=== PATIENT | female | born 1945 | race Caucasian/White ===

== ENCOUNTER 2019-04-09 10:16 | Inpatient (IN) | payer MEDICARE, BC ==
[~2019-04-09] VITALS: Ht 160 cm; Wt 100.2 kg
[~2019-04-09 10:16] MED LIST: ATORVASTATIN CA10 MG PO; CARBIDOPA-LEVO1 EACH PO; JANUVIA100 MG PO; METFORMIN HCL500 MG PO
[2019-04-09] MEDS ORDERED: IPRATROPIUM BROMIDE 0.02% 2.5 ML NEB NEB STA (10:54)
[2019-04-09] MEDS ORDERED: ALBUTEROL SULF 0.083% NEB SOLN 3 ML NEB NEB STA (10:54)
[2019-04-09] MEDS ORDERED: ONDANSETRON HCL INJ 2MG/ML 2ML 2 MG/ML VIAL IV STA (10:54)
--- NOTE | 2019-04-09 10:59 | NUR ---
GIVEN CUP FOR UA. STATES UNABLE TO VOID AT THIS TIME. PT IS AWARE OF NEED FOR UA.
[2019-04-09 11:07] LABS: BASOPHILS % 0.7 % (0.0-1.0); EOSINOPHILS # (AUTO) 0.1 (0.0-0.4); EOSINOPHILS % 2.2 % (0.0-6.0); HEMATOCRIT 38.6 % (34.2-44.1); HEMOGLOBIN 12.6 g/dL (12.0-16.0); LYMPHOCYTES # (AUTO) 0.4 (1.0-3.2); LYMPHOCYTES % 16.4 % (18.0-39.1); MEAN CORPUSCULAR HEMOGLOBIN 28.9 pg (28-32); MEAN CORPUSCULAR HGB CONC 32.6 g/dL (31-35); MEAN CORPUSCULAR VOLUME 88.5 fL (81-99); MONOCYTES # (AUTO) 0.2 (0.2-0.8); MONOCYTES % 5.6 % (4.4-11.3); NEUTROPHILS % 74.4 % (38.7-80.0); PLATELET COUNT 118 x10e3/uL (140-360); RED BLOOD COUNT 4.36 x10e6/uL (3.6-5.1)
[2019-04-09 11:20] LABS: INR 2.25; PROTHROMBIN TIME 26.5 seconds (11.9-14.5)
[2019-04-09 11:21] LABS: PARTIAL THROMBOPLASTIN TIME 59.9 seconds (23.8-35.5)
[2019-04-09 11:29] LABS: ALANINE AMINOTRANSFERASE 9 IU/L (0-55); ALBUMIN 3.7 g/dL (3.5-5.0); ALBUMIN/GLOBULIN RATIO 1.4 (0.8-2.0); ALKALINE PHOSPHATASE 71 IU/L (40-150); ANION GAP 13.1 mmol/L (8-16); BLOOD UREA NITROGEN 11 mg/dL (7-26); BUN/CREATININE RATIO 13 (6-25); CALCIUM 9.5 mg/dL (8.4-10.2); CARBON DIOXIDE 23 mmol/L (22-29); CHLORIDE 103 mmol/L (98-107); CREATININE, SERUM 0.82 mg/dL (0.57-1.11); EST GLOMERULAR FILTRATION RATE > 60 ML/MIN (60-); GLUCOSE 179 mg/dL (74-118); POTASSIUM 4.1 mmol/L (3.5-5.1); SODIUM 135 mmol/L (136-145)
[2019-04-09 11:37] LABS: STREPTOCOCCUS GRP A ANTIGEN NEGATIVE (NEGATIVE)
[2019-04-09 11:47] LABS: B-TYPE NATRIURETIC PEPTIDE2 73.6 pg/mL (0-100)
[2019-04-09 11:49] LABS: INFLUENZAE A&B ANTIGEN (RAPID) NEGATIVE (NEGATIVE)
--- NOTE | 2019-04-09 12:08 | Diagnostic Imaging Report ---
Chest, PA and lateral. History: Fever, congestion. Comparison: None available. Fashion: The heart is within normal limits of size. The mediastinal hilar contours are unremarkable. There is a patchy opacity at the left base for which pneumonia should be clinically excluded. The right lung is grossly clear. No pleural effusion or pneumothorax. Signed by: Noe Briones MD on 04/09/2019 12:06 PM
[2019-04-09] MEDS ORDERED: CEFTRIAXONE SOD 1 GM VIAL IV ONE (12:30)
[2019-04-09] MEDS ORDERED: CEFTRIAXONE SOD 1 GM/NS 50 ML 50 ML IV ONE (12:40)
[2019-04-09] MEDS ORDERED: LEVOFLOXACIN 500MG/D5W 100ML 100 ML IV SCH (12:45)
[2019-04-09] MEDS ORDERED: DEXTROSE 50% SYRINGE 50 ML IV PRN (13:15)
[2019-04-09] MEDS ORDERED: SODIUM CHLORIDE 0.9% 1000ML 1,000 ML IV ONE (13:15)
[2019-04-09] MEDS: ALBUTEROL SULF 0.083% NEB SOLN 3 ML NEB NEB SCH ×3 (14:55→23:00)
[2019-04-09] MEDS ORDERED: WARFARIN SODIUM3 MG PO (15:09)
[2019-04-09] MEDS: ACETAMINOPHEN 325 MG TAB PO PRN (15:14)
--- NOTE | 2019-04-09 15:44 | NUR ---
Received patient from ER via stretcher. AAOX4 to time, person, place, place, situation. Respirations even and unlabored. NS 75ml via left AC 20G. Oriented patient to room. Instructed to use call light for assistance. Reminded patient of UA orders. Voiced understanding.
[2019-04-09] MEDS ORDERED: ADVAIR 250-501 EACH INH (15:58)
[2019-04-09 16:00] VITALS: BP 136/63
[2019-04-09 16:13] VITALS: BP 136/63
[2019-04-09] MEDS: INSULIN LISPRO 100 UNIT/1 ML 3ML VIAL SQ SCH ×2 (17:21→21:00)
--- NOTE | 2019-04-09 19:00 | NUR ---
Paged to review home meds. Awaiting call back .
--- NOTE | 2019-04-09 19:15 | NUR ---
Report given to oncoming nurse of patient's status. No s/s of acute distress noted. Side rails upx2, call light within reach.
--- NOTE | 2019-04-09 19:22 | NUR ---
Patient received sitting up in bed. AAO x 4. Patient had no complaints of pain. Respirations even and non-labored. Safety measures in place. Patient instructed to call for assistance when needed. Call light within reach.
[2019-04-09] MEDS: IPRATROPIUM BROMIDE 0.02% 2.5 ML NEB NEB SCH (19:45)
[2019-04-09 20:00] VITALS: BP 113/55
[2019-04-09 20:26] LABS: CREATINE KINASE 36 IU/L (29-168)
[2019-04-09 21:00] VITALS: BP 113/55
[2019-04-09] MEDS ORDERED: SODIUM CHLORIDE 0.9% 1000ML 1,000 ML ONE (21:11)
--- NOTE | 2019-04-09 23:05 | NUR ---
Urine sample sent to lab for analysis.
[2019-04-09 23:22] LABS: BILIRUBIN,URINE NEGATIVE (NEGATIVE); CLARITY,URINE SL CLOUDY (CLEAR); COLOR,URINE YELLOW (YELLOW); KETONES,URINE TRACE (NEGATIVE); LEUKOCYTE ESTERASE ,URINE 1+ (NEGATIVE); NITRITE,URINE NEGATIVE (NEGATIVE); PROTEIN,URINE DIPSTICK NEGATIVE (NEGATIVE); URINE UROBILINOGEN 0.2 mg/dL (0.2 - 1)
[2019-04-09 23:32] LABS: BACTERIA,URINE MANY /HPF; EPITHELIAL CELLS,URINE FEW /LPF; RENAL EPITHELIAL CELLS,URINE FEW; TRANSITIONAL EPI CELLS,URINE MODERATE; WBC,URINE (MAN) 21-50 /HPF (0-5)
[2019-04-10] VITALS (11 sets, daily range): BP systolic 116–157; BP diastolic 60–83
[2019-04-10] MEDS: ALBUTEROL SULF 0.083% NEB SOLN 3 ML NEB NEB SCH ×2 (03:30→07:10)
[2019-04-10] MEDS: IPRATROPIUM BROMIDE 0.02% 2.5 ML NEB NEB SCH ×2 (03:30→07:10)
[2019-04-10] MEDS: ACETAMINOPHEN 325 MG TAB PO PRN ×2 (03:49→10:54)
[2019-04-10 05:32] LABS: BASOPHILS % 0.6 % (0.0-1.0); EOSINOPHILS % 1.7 % (0.0-6.0); HEMATOCRIT 34.1 % (34.2-44.1); HEMOGLOBIN 11.2 g/dL (12.0-16.0); LYMPHOCYTES # (AUTO) 0.7 (1.0-3.2); MEAN CORPUSCULAR HEMOGLOBIN 28.9 pg (28-32); MEAN CORPUSCULAR HGB CONC 32.8 g/dL (31-35); MEAN CORPUSCULAR VOLUME 87.9 fL (81-99); MONOCYTES # (AUTO) 0.2 (0.2-0.8); MONOCYTES % 12.2 % (4.4-11.3); NEUTROPHILS # (AUTO) 0.8 (2.1-6.9); NEUTROPHILS % 45.9 % (38.7-80.0); PLATELET COUNT 94 x10e3/uL (140-360); RED BLOOD COUNT 3.88 x10e6/uL (3.6-5.1)
[2019-04-10 05:47] LABS: CREATINE KINASE 48 IU/L (29-168)
[2019-04-10 06:11] LABS: ALANINE AMINOTRANSFERASE 10 IU/L (0-55); ALBUMIN 3.1 g/dL (3.5-5.0); ALBUMIN/GLOBULIN RATIO 1.3 (0.8-2.0); ALKALINE PHOSPHATASE 58 IU/L (40-150); ANION GAP 11.4 mmol/L (8-16); BLOOD UREA NITROGEN 11 mg/dL (7-26); BUN/CREATININE RATIO 13 (6-25); CALCIUM 8.7 mg/dL (8.4-10.2); CARBON DIOXIDE 23 mmol/L (22-29); CHLORIDE 106 mmol/L (98-107); CREATININE, SERUM 0.82 mg/dL (0.57-1.11); EST GLOMERULAR FILTRATION RATE > 60 ML/MIN (60-); GLUCOSE 138 mg/dL (74-118); POTASSIUM 3.4 mmol/L (3.5-5.1); SODIUM 137 mmol/L (136-145)
--- NOTE | 2019-04-10 06:16 | NUR ---
Dr. Gordon notified of critical WBC level of 1.72. No new order received.
--- NOTE | 2019-04-10 06:50 | NUR ---
Walking rounds done. Patient resting comfortably. BSSR given to oncoming nurse.
[2019-04-10 07:19] LABS: BAND NEUTROPHILS % (MANUAL) 2 %; EOSINOPHILS % (MANUAL) 2 % (0-7); LYMPHOCYTES % (MANUAL) 48 % (19-48); MONOCYTES % (MANUAL) 9 % (3.4-9.0); NEUTROPHILS % (MANUAL) 38 % (40-74); PLATELET ESTIMATE SLIGHTLY DECREASED; PLATELET MORPHOLOGY COMMENT NORMAL; RBC MORPHOLOGY COMMENT NORMAL
[2019-04-10] MEDS: INSULIN LISPRO 100 UNIT/1 ML 3ML VIAL SQ SCH ×4 (07:30→21:00)
[2019-04-10] MEDS ORDERED: VANCOMYCIN 1GM/NS 250 ML 250 ML IV SCH (09:15)
[2019-04-10] MEDS ORDERED: ALBUTEROL/IPRATROPIUM 3 ML NEB NEB PRN (09:15)
[2019-04-10] MEDS ORDERED: SALMETEROL/FLUTICASONE 250/50 INH PRN (09:15)
[2019-04-10] MEDS ORDERED: POTASSIUM CHLORIDE 10MEQ EA PO NR (09:30)
[2019-04-10] MEDS ORDERED: VANCOMYCIN 1GM/NS 250 ML 250 ML IV ONE ×2 (10:15→12:00)
[2019-04-10] MEDS: CEFTRIAXONE SOD 1 GM/NS 50 ML 50 ML IV SCH ×2 (10:53→21:51)
[2019-04-10] MEDS: SITAGLIPTIN 100 MG TAB PO SCH (10:53)
--- NOTE | 2019-04-10 11:22 | Diagnostic Imaging Report ---
EXAM: CT Chest WITHOUT contrast INDICATION: ^sob ^[id number] ^[id number] COMPARISON: None TECHNIQUE: Chest was scanned utilizing a multidetector helical scanner from the lung apex through the level of the adrenal glands without administration of IV contrast. Absence of intravenous contrast decreases sensitivity for detection of lymphadenopathy and vascular pathology. Coronal and sagittal reformations were obtained. Routine protocol was performed. IV CONTRAST: None COMPLICATIONS: None RADIATION DOSE: Total DLP: 488.35 mGy*cm Estimated effective dose: (DLP x 0.014 x size factor) mSv CTDIvol has been reviewed. It is below the limits set by the Radiation Protocol Committee (RPC). FINDINGS: LINES/ TUBES: None. LUNGS AND AIRWAYS: Patchy consolidations are seen in both lungs which could be due to multifocal pneumonia Airways are normal. PLEURA: The pleural spaces are clear. HEART AND MEDIASTINUM: The thyroid gland is normal. No hilar or axillary lymphadenopathy. Prominent mediastinal lymphadenopathy likely reactive. The heart is normal in size.. There is no pericardial effusion. UPPER ABDOMEN: Splenomegaly. BONES: There are degenerative changes in the thoracic spine. SOFT TISSUES: Unremarkable. IMPRESSION: Patchy consolidations are seen in both lungs likely due to multifocal pneumonia Signed by: Shayne Andrew MD on 04/10/2019 11:19 AM
[2019-04-10] MEDS: AZITHROMYCIN 500MG/NS 250 ML 250 ML IV SCH (12:37)
[2019-04-10 12:49] LABS: CREATINE KINASE 49 IU/L (29-168)
[2019-04-10] MEDS: CARBIDOPA/LEVODOPA 10/100 TAB PO SCH ×3 (13:30→21:51)
[2019-04-10] MEDS ORDERED: CEPACOL SORE THROAT LOZENGES PO PRN (13:45)
[2019-04-10] MEDS: ALBUTEROL/IPRATROPIUM 3 ML NEB NEB SCH ×2 (14:00→18:48)
--- NOTE | 2019-04-10 20:11 | NUR ---
VITALS RETAKEN FOR VERIFICATION BY THIS NURSE, PATIENT SITTING IN BED HIGH FOWLERS POSITION, TALKING ON PHONE SMILING, REMAIN ON CONTACT ISOLATION FOR LEUKOPENIA
[2019-04-10] MEDS: ATORVASTATIN 10 MG TAB PO SCH (21:51)
[2019-04-11] VITALS (11 sets, daily range): BP systolic 119–158; BP diastolic 59–90
[2019-04-11] MEDS: ALBUTEROL/IPRATROPIUM 3 ML NEB NEB SCH ×5 (00:05→19:00)
--- NOTE | 2019-04-11 04:06 | NUR ---
PATIENT BED EXCHANGED PER HER REQUEST, ALL BUTTONS FUNCTION, REMAIN ON ISOLATION, HELPED BACK INTO BED, CALL LIGHT WITHIN REACH
[2019-04-11 05:20] LABS: EOSINOPHILS # (AUTO) 0.3 (0.0-0.4); EOSINOPHILS % 11.1 % (0.0-6.0); HEMATOCRIT 34.1 % (34.2-44.1); LYMPHOCYTES # (AUTO) 0.7 (1.0-3.2); LYMPHOCYTES % 31.6 % (18.0-39.1); MEAN CORPUSCULAR HEMOGLOBIN 28.9 pg (28-32); MEAN CORPUSCULAR HGB CONC 32.3 g/dL (31-35); MEAN CORPUSCULAR VOLUME 89.7 fL (81-99); MONOCYTES # (AUTO) 0.3 (0.2-0.8); NEUTROPHILS % 44.4 % (38.7-80.0); PLATELET COUNT 116 x10e3/uL (140-360); RED CELL DISTRIBUTION WIDTH 14.2 % (11.7-14.4)
--- NOTE | 2019-04-11 05:25 | NUR ---
MILDLY ELEVATED TEMP REPORTED 99.1, HR 97, BLOOD PRESSURE 119/90, PATIENT ASYMPTOMATIC, NO ALTERED MENTAL STATUS, CONTINUES TO C/O WEAKNESS, REMAIN ON ISOLATION FOR NEUTROPENIC PRECAUTIONS
[2019-04-11 05:44] LABS: ANION GAP 10.7 mmol/L (8-16); BLOOD UREA NITROGEN 10 mg/dL (7-26); BUN/CREATININE RATIO 13 (6-25); CALCIUM 8.8 mg/dL (8.4-10.2); CARBON DIOXIDE 23 mmol/L (22-29); CHLORIDE 112 mmol/L (98-107); CREATININE, SERUM 0.75 mg/dL (0.57-1.11); EST GLOMERULAR FILTRATION RATE > 60 ML/MIN (60-); GLUCOSE 139 mg/dL (74-118); POTASSIUM 3.7 mmol/L (3.5-5.1); SODIUM 142 mmol/L (136-145)
--- NOTE | 2019-04-11 07:02 | NUR ---
BSSR GIVEN TO ONCOMING SHIFT JANKI VILLA, PATIENT STABLE, VSS, AFEBRILE, IN BED, CALL LIGHT WITHIN REACH, VERBAZADELA CONTINUE PLAN OF CARE, BED IN LOWEST POSITION, LABS PENDING THIS AM
[2019-04-11] MEDS: CARBIDOPA/LEVODOPA 10/100 TAB PO SCH ×4 (08:26→22:29)
[2019-04-11] MEDS: AZITHROMYCIN 500MG/NS 250 ML 250 ML IV SCH (08:26)
[2019-04-11] MEDS: SITAGLIPTIN 100 MG TAB PO SCH (08:26)
[2019-04-11] MEDS ORDERED: WARFARIN SOD 3 MG TAB PO SCH (09:00)
[2019-04-11 09:02] LABS: PLATELET MORPHOLOGY COMMENT FEW LARGE
[2019-04-11] MEDS: CEFTRIAXONE SOD 1 GM/NS 50 ML 50 ML IV SCH ×2 (10:39→22:29)
[2019-04-11] MEDS: INSULIN LISPRO 100 UNIT/1 ML 3ML VIAL SQ SCH ×4 (10:40→22:30)
[2019-04-11] MEDS: WARFARIN SOD 3 MG TAB PO SCH (17:03)
--- NOTE | 2019-04-11 19:09 | NUR ---
report received from JANKI VILLA, PATIENT SEEN LYING IN BED, NO DISTRESS NOTED, NO C/O PAIN OR DISCOMFORT, BED IN LOWEST POSITION, CALL LIGHT WITHIN REACH
[2019-04-11] MEDS: ATORVASTATIN 10 MG TAB PO SCH (22:29)
[2019-04-12] VITALS (14 sets, daily range): BP systolic 104–166; BP diastolic 59–82
[2019-04-12] MEDS: ALBUTEROL/IPRATROPIUM 3 ML NEB NEB SCH ×4 (01:00→19:42)
--- NOTE | 2019-04-12 06:52 | NUR ---
bedside shift report received from mold shifter RN, pt sitting up in bed, appears comfortable, no complaints at this time. no signs of distress.
[2019-04-12] MEDS: INSULIN LISPRO 100 UNIT/1 ML 3ML VIAL SQ SCH ×4 (07:30→21:00)
[2019-04-12] MEDS: AZITHROMYCIN 500MG/NS 250 ML 250 ML IV SCH (09:56)
[2019-04-12] MEDS: CARBIDOPA/LEVODOPA 10/100 TAB PO SCH ×4 (09:56→22:05)
[2019-04-12] MEDS: SITAGLIPTIN 100 MG TAB PO SCH (09:56)
[2019-04-12] MEDS ORDERED: SODIUM CHLORIDE 0.9% 250ML 250 ML ONE (10:06)
[2019-04-12 11:43] LABS: INR 1.27; PROTHROMBIN TIME 16.7 seconds (11.9-14.5)
[2019-04-12] MEDS: CEFTRIAXONE SOD 1 GM/NS 50 ML 50 ML IV SCH ×2 (12:49→22:05)
[2019-04-12] MEDS: WARFARIN SOD 3 MG TAB PO SCH (17:21)
--- NOTE | 2019-04-12 19:25 | NUR ---
Patient received sitting up in bed. AAO x 4. Patient had no complaints of pain. Respirations even and non-labored. Fall precautions implemented. Patient instructed to call for assistance when needed. Call light within reach.
--- NOTE | 2019-04-12 20:09 | NUR ---
Dr. Colvin here to see patient. No new order received.
[2019-04-12] MEDS: ATORVASTATIN 10 MG TAB PO SCH (22:05)
[2019-04-13] VITALS (9 sets, daily range): BP systolic 130–170; BP diastolic 65–99
--- NOTE | 2019-04-13 00:04 | NUR ---
Patient's IV on right arm infiltrated. Old IV removed with tip intact. New IV inserted in Right forearm 22G
[2019-04-13] MEDS: ALBUTEROL/IPRATROPIUM 3 ML NEB NEB SCH ×4 (00:15→19:50)
--- NOTE | 2019-04-13 07:00 | NUR ---
Walking rounds done. Patient resting comfortably. BSSR given to oncoming nurse.
--- NOTE | 2019-04-13 07:01 | NUR ---
received bedside shift report from PM RN, pt sitting up in bed, awake, alert, no signs of distress. will continue to monitor.
[2019-04-13] MEDS: INSULIN LISPRO 100 UNIT/1 ML 3ML VIAL SQ SCH ×4 (08:55→21:00)
[2019-04-13 09:36] LABS: BASOPHILS % 0.5 % (0.0-1.0); EOSINOPHILS # (AUTO) 0.5 (0.0-0.4); EOSINOPHILS % 11.9 % (0.0-6.0); HEMATOCRIT 33.1 % (34.2-44.1); HEMOGLOBIN 10.9 g/dL (12.0-16.0); LYMPHOCYTES # (AUTO) 1.2 (1.0-3.2); LYMPHOCYTES % 28.9 % (18.0-39.1); MEAN CORPUSCULAR HEMOGLOBIN 28.9 pg (28-32); MEAN CORPUSCULAR HGB CONC 32.9 g/dL (31-35); MEAN CORPUSCULAR VOLUME 87.8 fL (81-99); MONOCYTES # (AUTO) 0.2 (0.2-0.8); MONOCYTES % 5.1 % (4.4-11.3); NEUTROPHILS # (AUTO) 2.3 (2.1-6.9); NEUTROPHILS % 52.9 % (38.7-80.0); PLATELET COUNT 156 x10e3/uL (140-360); RED BLOOD COUNT 3.77 x10e6/uL (3.6-5.1); RED CELL DISTRIBUTION WIDTH 13.9 % (11.7-14.4)
[2019-04-13] MEDS: CARBIDOPA/LEVODOPA 10/100 TAB PO SCH ×4 (09:36→21:04)
[2019-04-13] MEDS: AZITHROMYCIN 500MG/NS 250 ML 250 ML IV SCH (09:36)
[2019-04-13] MEDS: SITAGLIPTIN 100 MG TAB PO SCH (09:36)
[2019-04-13 09:48] LABS: INR 1.15; PROTHROMBIN TIME 15.4 seconds (11.9-14.5)
[2019-04-13 09:52] LABS: ANION GAP 11.8 mmol/L (8-16); BLOOD UREA NITROGEN 13 mg/dL (7-26); BUN/CREATININE RATIO 16 (6-25); CALCIUM 8.6 mg/dL (8.4-10.2); CARBON DIOXIDE 26 mmol/L (22-29); CHLORIDE 107 mmol/L (98-107); EST GLOMERULAR FILTRATION RATE > 60 ML/MIN (60-); GLUCOSE 152 mg/dL (74-118); POTASSIUM 3.8 mmol/L (3.5-5.1); SODIUM 141 mmol/L (136-145)
[2019-04-13] MEDS: CEFTRIAXONE SOD 1 GM/NS 50 ML 50 ML IV SCH ×2 (13:30→21:29)
--- NOTE | 2019-04-13 14:02 | Diagnostic Imaging Report ---
Exam: Chest radiograph Clinical History: Infection Comparison: April 09, 2019 Findings: Residual airway opacity is noted near the left lung base which may represent resolving pneumonitis. There is no evidence of pleural effusion or pneumothorax. The cardiac size is within normal limits. The regional osseous structures are unremarkable. Signed by: Dr. Vignesh Fleming MD on 04/13/2019 1:59 PM
[2019-04-13] MEDS: WARFARIN SOD 3 MG TAB PO SCH (17:13)
--- NOTE | 2019-04-13 19:22 | NUR ---
Patient received sitting up in bed. AAO x 4. No acute distress noted. Patient instructed to call for assistance when needed. Call light within reach.
[2019-04-13] MEDS: ATORVASTATIN 10 MG TAB PO SCH (21:04)
[2019-04-14] VITALS (7 sets, daily range): BP systolic 130–147; BP diastolic 62–79
[2019-04-14] MEDS: ALBUTEROL/IPRATROPIUM 3 ML NEB NEB SCH ×4 (01:35→20:10)
[2019-04-14 05:12] LABS: BASOPHILS % 0.5 % (0.0-1.0); EOSINOPHILS # (AUTO) 0.5 (0.0-0.4); HEMATOCRIT 34.5 % (34.2-44.1); HEMOGLOBIN 10.6 g/dL (12.0-16.0); LYMPHOCYTES # (AUTO) 1.1 (1.0-3.2); LYMPHOCYTES % 27.3 % (18.0-39.1); MEAN CORPUSCULAR HEMOGLOBIN 27.5 pg (28-32); MEAN CORPUSCULAR HGB CONC 30.7 g/dL (31-35); MEAN CORPUSCULAR VOLUME 89.4 fL (81-99); MONOCYTES # (AUTO) 0.2 (0.2-0.8); MONOCYTES % 5.5 % (4.4-11.3); NEUTROPHILS # (AUTO) 2.2 (2.1-6.9); NEUTROPHILS % 53.7 % (38.7-80.0); PLATELET COUNT 146 x10e3/uL (140-360); RED BLOOD COUNT 3.86 x10e6/uL (3.6-5.1); RED CELL DISTRIBUTION WIDTH 13.7 % (11.7-14.4)
--- NOTE | 2019-04-14 06:48 | NUR ---
Bed-side shift report given to oncoming nurse.
--- NOTE | 2019-04-14 07:00 | NUR ---
RECEIVED BEDSIDE SHIFT REPORT FROM HIGH PRESSURE BOILER OPERATOR RN. PT DENIES NEEDS AT THIS TIME.
[2019-04-14] MEDS: AZITHROMYCIN 500MG/NS 250 ML 250 ML IV SCH (08:23)
[2019-04-14] MEDS: SITAGLIPTIN 100 MG TAB PO SCH (08:23)
[2019-04-14] MEDS: CARBIDOPA/LEVODOPA 10/100 TAB PO SCH ×4 (08:23→20:38)
[2019-04-14] MEDS: INSULIN LISPRO 100 UNIT/1 ML 3ML VIAL SQ SCH ×4 (08:25→20:26)
--- NOTE | 2019-04-14 08:33 | NUR ---
BPCI LETTER GIVEN
--- NOTE | 2019-04-14 08:33 | NUR ---
EDUCATED ABOUT IMM, SIGNED, FILED IN CHART, WITH COPY LEFT WITH FAMILY AT BEDSIDE.
[2019-04-14] MEDS: CEFTRIAXONE SOD 1 GM/NS 50 ML 50 ML IV SCH ×2 (10:17→21:43)
[2019-04-14 17:37] LABS: INR 1.1; PROTHROMBIN TIME 14.9 seconds (11.9-14.5)
[2019-04-14] MEDS: WARFARIN SOD 3 MG TAB PO SCH (18:28)
[2019-04-14] MEDS: ATORVASTATIN 10 MG TAB PO SCH (20:38)
[2019-04-15] VITALS (9 sets, daily range): BP systolic 137–144; BP diastolic 62–73
[2019-04-15] MEDS: ALBUTEROL/IPRATROPIUM 3 ML NEB NEB SCH ×4 (02:45→19:20)
[2019-04-15 06:10] LABS: INR 1.16; PROTHROMBIN TIME 15.6 seconds (11.9-14.5)
--- NOTE | 2019-04-15 07:00 | NUR ---
RECEIVED BEDSIDE SHIFT REPORT FROM BRAKE OPERATOR RN. PT DENIES NEEDS AT THIS TIME.
[2019-04-15] MEDS: AZITHROMYCIN 250 MG TAB PO SCH (08:05)
[2019-04-15] MEDS: SITAGLIPTIN 100 MG TAB PO SCH (08:05)
[2019-04-15] MEDS: CARBIDOPA/LEVODOPA 10/100 TAB PO SCH ×4 (08:05→20:31)
[2019-04-15] MEDS: INSULIN LISPRO 100 UNIT/1 ML 3ML VIAL SQ SCH ×4 (08:06→20:31)
[2019-04-15] MEDS: WARFARIN SOD 3 MG TAB PO SCH (17:05)
[2019-04-15] MEDS: ATORVASTATIN 10 MG TAB PO SCH (20:31)
[2019-04-16] VITALS (8 sets, daily range): BP systolic 131–152; BP diastolic 60–68
[2019-04-16] MEDS: ALBUTEROL/IPRATROPIUM 3 ML NEB NEB SCH ×4 (01:02→19:35)
[2019-04-16 05:11] LABS: BASOPHILS % 0.6 % (0.0-1.0); EOSINOPHILS # (AUTO) 0.5 (0.0-0.4); EOSINOPHILS % 9.2 % (0.0-6.0); HEMATOCRIT 34.2 % (34.2-44.1); HEMOGLOBIN 10.9 g/dL (12.0-16.0); LYMPHOCYTES # (AUTO) 1.2 (1.0-3.2); MEAN CORPUSCULAR HEMOGLOBIN 28.8 pg (28-32); MEAN CORPUSCULAR HGB CONC 31.9 g/dL (31-35); MEAN CORPUSCULAR VOLUME 90.2 fL (81-99); MONOCYTES # (AUTO) 0.3 (0.2-0.8); MONOCYTES % 5.8 % (4.4-11.3); NEUTROPHILS % 60.2 % (38.7-80.0); PLATELET COUNT 192 x10e3/uL (140-360); RED BLOOD COUNT 3.79 x10e6/uL (3.6-5.1); RED CELL DISTRIBUTION WIDTH 13.9 % (11.7-14.4)
[2019-04-16 05:23] LABS: INR 1.24; PROTHROMBIN TIME 16.4 seconds (11.9-14.5)
--- NOTE | 2019-04-16 07:00 | NUR ---
BEDSIDE SHIFT REPORT RECEIVED FROM THE MACHINE MOLDER SQUEEZE RN. EDUCATED PT ABOUT FALL PRECAUTIONS.PT VERBALIZED UNDERSTANDING CALL LIGHT WITH IN EASY REACH. INSTRUCTED PT TO USE CALL LIGHT FOR ALL THE NEEDS. BED IS LOW AND LOCKED. SIDE RAILS X2. BED ALARM IS ON. PT DENIES NEEDS AT THIS TIME.
[2019-04-16] MEDS: AZITHROMYCIN 250 MG TAB PO SCH (08:14)
[2019-04-16] MEDS: CARBIDOPA/LEVODOPA 10/100 TAB PO SCH ×4 (08:14→21:46)
[2019-04-16] MEDS: SITAGLIPTIN 100 MG TAB PO SCH (08:14)
[2019-04-16] MEDS: INSULIN LISPRO 100 UNIT/1 ML 3ML VIAL SQ SCH ×4 (08:30→21:46)
[2019-04-16] MEDS ORDERED: AMOXICILLIN/CLAVULANATE K 875 MG TAB PO SCH (11:00)
--- NOTE | 2019-04-16 13:00 | NUR ---
DR. EUGENE AT BEDSIDE. NO MORE NEUTROPENIC PRECAUTIONS NEEDED PER THE
--- NOTE | 2019-04-16 15:06 | NUR ---
Nutrition Screen Note RD Recommendation for Physician: -Continue current diet as ordered Plan of Care: RD following, monitoring for tolerance and adequacy Nutrition reason for involvement: Length of stay Primary Diagnose(s): leucopenia, pneumonia PMH: diabetes, Parkinson, HTN, dyslipidemia (from H/P on 12/04/18 no H/P in chart yet for this admission) Ht: 63 in Wt: 221 lb BMI: 39.2 kg/m2 IBW:[address] Assessment: (04/16) Chart reviewed. Labs and meds reviewed. Pt was admitted with leucopenia and pneumonia. Pt reports she has been eating all of her meals. No weight loss reported. No N/V or chewing/swallowing issues. Will continue to monitor. Current Diet: 1800 kcal ADA diet Malnutrition Evaluation (04/16) The patient does not meet criteria for a specified degree of malnutrition at this time. Will re-evaluate at follow-up as appropriate. Diet Education Needs Assessment: Pt was not interested in diet education materials at time of visit Nutrition Care Level: low Signed: Trinity Crawford, RD, LD
--- NOTE | 2019-04-16 17:06 | Diagnostic Imaging Report ---
EXAM: CHEST SINGLE (PORTABLE) DATE: 04/16/2019 3:18 PM INDICATION: ^Pneumonia ^[id number] ^1615 ^Y COMPARISON: Chest x-ray, 04/13/2019 FINDINGS: Lines and tubes: None Heart size normal. Unchanged mild focal opacity at the left lung base. No pleural effusion or pneumothorax. Upper abdomen unremarkable. No acute bony abnormality. IMPRESSION: Minimal patchy opacity at the left lung base, stable from last exam. This may represent atelectasis or infection. Signed by: Dr. Nils Hussein M.D. on 04/16/2019 5:03 PM
[2019-04-16] MEDS: WARFARIN SOD 3 MG TAB PO SCH (17:28)
--- NOTE | 2019-04-16 18:00 | NUR ---
PT C/O NAUSEA, DIARRHEA AND ABDOMINAL DISCOMFORT. PAGED DR. RAMSEY AND LEFT MESSAGE REGARDING THE SAME. WAITING FOR THE RESPONSE FROM THE
--- NOTE | 2019-04-16 19:00 | NUR ---
BEDSIDE SHIFT REPORT GIVEN TO THE BILINGUAL SCHOOL PSYCHOLOGIST RN. PT DENIED FURTHER NEEDS.
[2019-04-16] MEDS ORDERED: ONDANSETRON HCL INJ 2MG/ML 2ML 2 MG/ML VIAL IV PRN (19:45)
[2019-04-16] MEDS: ATORVASTATIN 10 MG TAB PO SCH (21:46)
[2019-04-17] VITALS (8 sets, daily range): BP systolic 98–129; BP diastolic 47–59
[2019-04-17] MEDS: ALBUTEROL/IPRATROPIUM 3 ML NEB NEB SCH ×4 (00:15→18:55)
--- NOTE | 2019-04-17 07:00 | NUR ---
BEDSIDE SHIFT REPORT RECEIVED FROM THE PRODUCT BLENDING SUPERVISOR RN. EDUCATED PT ABOUT FALL PRECAUTIONS.PT VERBALIZED UNDERSTANDING CALL LIGHT WITH IN EASY REACH. INSTRUCTED PT TO USE CALL LIGHT FOR ALL THE NEEDS. BED IS LOW AND LOCKED. SIDE RAILS X2. BED ALARM IS ON. PT DENIES NEEDS AT THIS TIME.
[2019-04-17] MEDS: INSULIN LISPRO 100 UNIT/1 ML 3ML VIAL SQ SCH ×4 (08:30→21:15)
[2019-04-17] MEDS: SITAGLIPTIN 100 MG TAB PO SCH (08:33)
[2019-04-17] MEDS: CARBIDOPA/LEVODOPA 10/100 TAB PO SCH ×4 (08:33→21:26)
[2019-04-17 09:06] LABS: INR 1.27; PROTHROMBIN TIME 16.7 seconds (11.9-14.5)
[2019-04-17] MEDS ORDERED: SODIUM CHLORIDE 0.9% 250ML 250 ML ONE (09:43)
[2019-04-17] MEDS: CEFTRIAXONE SOD 1 GM/NS 50 ML 50 ML IV SCH (09:49)
--- NOTE | 2019-04-17 16:00 | NUR ---
PAGED DR. EUGENE PER DR. RAMSEY, REGARDING PT D/C PLAN. LEFT MESSAGE. WAITING FOR THE RESPONSE FROM THE
[2019-04-17] MEDS: WARFARIN SOD 3 MG TAB PO SCH (17:53)
--- NOTE | 2019-04-17 19:00 | NUR ---
BEDSIDE SHIFT REPORT GIVEN TO THE BANKMAN RN. PT DENIED FURTHER NEEDS.
[2019-04-17] MEDS: ATORVASTATIN 10 MG TAB PO SCH (21:26)
[2019-04-18 00:06] VITALS: BP 132/59
[2019-04-18] MEDS: ALBUTEROL/IPRATROPIUM 3 ML NEB NEB SCH ×3 (00:50→13:08)
[2019-04-18 04:00] VITALS: BP 134/63
--- NOTE | 2019-04-18 07:00 | NUR ---
BEDSIDE SHIFT REPORT RECEIVED FROM THE SUPERVISOR ADVICE RN. EDUCATED PT ABOUT FALL PRECAUTIONS.PT VERBALIZED UNDERSTANDING CALL LIGHT WITH IN EASY REACH. INSTRUCTED PT TO USE CALL LIGHT FOR ALL THE NEEDS. BED IS LOW AND LOCKED. SIDE RAILS X2. PT DENIES NEEDS AT THIS TIME.
[2019-04-18 07:36] VITALS: BP 121/57
[2019-04-18 07:58] VITALS: BP 121/57
[2019-04-18] MEDS: INSULIN LISPRO 100 UNIT/1 ML 3ML VIAL SQ SCH ×2 (08:30→11:35)
[2019-04-18] MEDS: SITAGLIPTIN 100 MG TAB PO SCH (08:46)
[2019-04-18] MEDS: CEFTRIAXONE SOD 1 GM/NS 50 ML 50 ML IV SCH (08:46)
[2019-04-18] MEDS: CARBIDOPA/LEVODOPA 10/100 TAB PO SCH ×2 (08:46→12:27)
[2019-04-18 10:35] LABS: INR 1.22; PROTHROMBIN TIME 16.2 seconds (11.9-14.5)
[2019-04-18 11:15] VITALS: BP 127/49
--- NOTE | 2019-04-18 11:16 | NUR ---
DR. RAMSEY AT BEDSIDE. INFORMED PT INR VALUE 1.22 TODAY.
--- NOTE | 2019-04-18 12:14 | Discharge Summary ---
UPSETTER SETTER UP: Dr. Dee Colvin. FINAL DIAGNOSES: 1. Sepsis on admission. No shock. 2. Multilobar pneumonia. 3. Leukopenia. 4. Thrombocytopenia. SUMMARY: This is a 73-year-old female, who came into the hospital with sepsis basically because of multilobar pneumonia. The patient's platelet was low along with WBC was low as well. The patient also had a CT scan show patchy consolidation in both lungs, likely multilobar pneumonia. On admission, the patient WBC was 1.7. It is now 4.99. Platelet on admission was 94,000 and now is 192,000. The patient is otherwise stable. Microbiology, blood cultures negative. Gram stain negative. The patient is otherwise stable. Serology, influenza A and B negative. Strep A negative. The patient is stable. She does have urinary tract infection, but most likely secondary. Microbiology, urine culture screen was negative as well. The patient is otherwise stable now. She has remained afebrile. The blood work is stable. 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 Her INR on admission was therapeutic. However, the INR is low at this time, but the patient has very low risk for any pulmonary embolism. The patient is otherwise stable. She will be discharged home. Resume her home medication. Resume her warfarin. The patient is stable. We will follow on Friday and we will obtain level for adjustment of her medication. Discussed with the patient at length. The patient is stable, discharged home today. MD ARGELIA Liang/SALENA /[id number]
--- NOTE | 2019-04-18 12:30 | NUR ---
MIQUEL TO D/C PT PER DR. RAMSEY AND DR. EUGENE.
--- NOTE | 2019-04-18 13:00 | NUR ---
PT IS WAITING FOR FAMILY MEMBER TO COME AND REMOTE COMPUTER TERMINAL OPERATOR.
--- NOTE | 2019-04-18 15:00 | NUR ---
PT DISCHARGED HOME SAFELY WITH FAMILY MEMBER. TELEMETRY AND IV REMOVED, TIP INTACT. DRESSING APPLIED. NO RX PER DR. RAMSEY. DISCHARGE INSTRUCTIONS GIVEN AND PATIENT VERBALIZED UNDERSTANDING. PT ESCORTED VIA WHEEL CHAIR WITH THE TECH TO THE PRIVATE AUTO AT THE FRONT ENTRANCE. PT DENIED FURTHER NEEDS.
--- NOTE | 2019-04-18 17:40 | Consultation ---
DATE OF CONSULTATION: 04/10/[address] Gordon. HISTORY OF PRESENT ILLNESS: Jennifer Shelley is a 73-year-old white female, referred to me for evaluation of pancytopenia. The patient had presented with cough and bronchopneumonia. SOCIAL HISTORY: Noncontributory. FAMILY HISTORY: Noncontributory. ALLERGIES: REPORTED TO CLARITHROMYCIN. MEDICATIONS: At this time, Levaquin, insulin, Tylenol. REVIEW OF SYSTEMS: HEENT: Normal. CARDIAC: History of hyperlipidemia. GI: Normal. : Normal. MUSCULOSKELETAL: History of Parkinson's. PHYSICAL EXAMINATION: GENERAL: Remarkable female, distress with cough. NECK: No palpable adenopathy. HEART: Within normal limits. LUNGS: Show coarse crepitations. ABDOMEN: Soft. RECTAL: Deferred. VAGINAL: Deferred. CENTRAL NERVOUS SYSTEM: Essentially normal. EXTREMITIES: Essentially normal. LABORATORY DATA: Lab shows a sodium of 137, potassium 3.4, chloride , CO2 23, BUN 11, creatinine 0.8. WBC of 1.7, hemoglobin 11.2, hematocrit 34.1, platelets of 94,000. INR 2.25, bilirubin 0.3, SGOT 12, SGPT 10, alkaline phosphatase 58. IMPRESSION: 1. Kiki positive hemolytic anemia . 2. Neutropenia due to sepsis. 3. Thrombocytopenia due to sepsis. 4. History of deep venous thrombosis. 5. Urinary tract infection. 6. Left bronchial pneumonia. 7. Parkinson disease. 8. Hyperlipidemia. 9. Diabetes mellitus. PLAN: To treat her aggressively with IV antibiotics. Neutropenia and thrombocytopenia are related to the bronchopneumonia. I will confine myself to Hematology. Aggressive antibiotic therapy. The patient has recovered. Hemoglobin today 10.9, white count of 4990, platelets of 192,000. The patient is being discharged by the attending physician. We will follow the patient as outpatient. MD MAHNAZ Espana/MODL /[id number] cc: Jules Gordon MD
== END 2019-04-18 15:01 | disposition home or self-care (01) | DRG 871 ==
LOC: ER 10:16 → ERHOLD 13:15 → MED/SURG2 15:46 → OBSVTOIN 04-10 09:12
PROVIDERS: ADMIT Internal Medicine; ATTEND Internal Medicine
DX: A41.9 Sepsis, unspecified organism (principal); J18.0 Bronchopneumonia, unspecified organism; N39.0 Urinary tract infection, site not specified; D58.9 Hereditary hemolytic anemia, unspecified; D72.819 Decreased white blood cell count, unspecified; D69.6 Thrombocytopenia, unspecified; Z86.718 Personal history of other venous thrombosis and embolism; G20 Parkinson's disease; E11.9 Type 2 diabetes mellitus without complications; E78.5 Hyperlipidemia, unspecified
CPT/HCPCS: 36415; 71045; 71046; 71250; 80048; 80053; 81001; 82550; 82553; 82948; 83518; 83605; 83880; 84484; 85025; 85045; 85610; 85730; 87040; 87070; 87086; 87205; 87400; 94640; 94664; 96360; 96372; 99284; G0378; J0456; J0696; J1956; J2405; J3370; J7030; J7050

== ENCOUNTER 2021-03-01 11:25 | Emergency (ER) | payer MEDICARE, BC ==
[~2021-03-01] VITALS: Ht 160 cm; Wt 100.2 kg
[~2021-03-01 11:25] MED LIST changes: +ADVAIR 250-501 EACH INH; +WARFARIN SODIUM3 MG PO
[2021-03-01] MEDS ORDERED: ONDANSETRON HCL INJ 2MG/ML 2ML 2 MG/ML VIAL IV STA (11:46)
[2021-03-01 11:55] LABS: BASOPHILS % 0.3 % (0.0-1.0); EOSINOPHILS # (AUTO) 0.2 (0.0-0.4); EOSINOPHILS % 4.1 % (0.0-6.0); HEMATOCRIT 34.4 % (34.2-44.1); HEMOGLOBIN 11.1 g/dL (12.0-16.0); LYMPHOCYTES # (AUTO) 0.7 (1.0-3.2); LYMPHOCYTES % 16.6 % (18.0-39.1); MEAN CORPUSCULAR HEMOGLOBIN 29.6 pg (28-32); MEAN CORPUSCULAR HGB CONC 32.3 g/dL (31-35); MEAN CORPUSCULAR VOLUME 91.7 fL (81-99); MONOCYTES # (AUTO) 0.3 (0.2-0.8); MONOCYTES % 8.4 % (4.4-11.3); NEUTROPHILS # (AUTO) 2.6 (2.1-6.9); NEUTROPHILS % 66.5 % (38.7-80.0); PLATELET COUNT 165 x10e3/uL (140-360); RED BLOOD COUNT 3.75 x10e6/uL (3.6-5.1); RED CELL DISTRIBUTION WIDTH 13.6 % (11.7-14.4)
[2021-03-01] MEDS ORDERED: ACETAMINOPHEN 325 MG TAB PO PRN (12:00)
[2021-03-01 12:16] LABS: ALBUMIN 3.1 g/dL (3.5-5.0); ALKALINE PHOSPHATASE 61 IU/L (40-150); ANION GAP 11.1 mmol/L (8-16); BLOOD UREA NITROGEN 11 mg/dL (7-26); BUN/CREATININE RATIO 14 (6-25); CALCIUM 8.3 mg/dL (8.4-10.2); CARBON DIOXIDE 29 mmol/L (22-29); CHLORIDE 98 mmol/L (98-107); CREATINE KINASE 10 IU/L (29-168); CREATININE, SERUM 0.78 mg/dL (0.57-1.11); EST GLOMERULAR FILTRATION RATE 72 ML/MIN (60-); GLUCOSE 161 mg/dL (74-118); POTASSIUM 4.1 mmol/L (3.5-5.1); SODIUM 134 mmol/L (136-145)
[2021-03-01 12:18] LABS: ALANINE AMINOTRANSFERASE < 6 IU/L (0-55)
[2021-03-01] MEDS ORDERED: ONDANSETRON ODT4 MG PO (13:11)
[2021-03-01 13:24] VITALS: BP 136/65
== END 2021-03-01 13:20 | disposition home or self-care (01) ==
LOC: ER 11:47
DX: U07.1 COVID-19 (principal); J12.82 Pneumonia due to coronavirus disease 2019; R05.9 Cough, unspecified; E11.65 Type 2 diabetes mellitus with hyperglycemia; E78.5 Hyperlipidemia, unspecified; D64.9 Anemia, unspecified
CPT/HCPCS: 36415; 71045; 80053; 82550; 82553; 84484; 85025; 93005; 99284; J2405

== ENCOUNTER 2022-06-11 08:43 | Inpatient (IN) | payer MEDICARE, BC ==
[~2022-06-11] VITALS: Ht 160 cm; Wt 100.2 kg
[~2022-06-11 08:43] MED LIST changes: +ONDANSETRON ODT4 MG PO
[2022-06-11 09:15] LABS: BASOPHILS % 0.5 % (0.0-1.0); EOSINOPHILS # (AUTO) 0.3 (0.0-0.4); HEMATOCRIT 42.9 % (34.2-44.1); HEMOGLOBIN 14.1 g/dL (12.0-16.0); LYMPHOCYTES # (AUTO) 0.5 (1.0-3.2); LYMPHOCYTES % 5.9 % (18.0-39.1); MEAN CORPUSCULAR HEMOGLOBIN 30.3 pg (28-32); MEAN CORPUSCULAR HGB CONC 32.9 g/dL (31-35); MEAN CORPUSCULAR VOLUME 92.3 fL (81-99); MONOCYTES # (AUTO) 0.3 (0.2-0.8); NEUTROPHILS # (AUTO) 7.3 (2.1-6.9); PLATELET COUNT 134 x10e3/uL (140-360); RED BLOOD COUNT 4.65 x10e6/uL (3.6-5.1); RED CELL DISTRIBUTION WIDTH 13.6 % (11.7-14.4)
[2022-06-11] MEDS ORDERED: ALBUTEROL/IPRATROPIUM 3 ML NEB NEB ONE ×2 (09:15→11:45)
[2022-06-11 09:26] LABS: INR 0.94; PROTHROMBIN TIME 13.1 seconds (11.9-14.5)
[2022-06-11 09:27] LABS: PARTIAL THROMBOPLASTIN TIME 26.3 seconds (23.8-35.5)
[2022-06-11 09:36] LABS: ALBUMIN 4.1 g/dL (3.5-5.0); ALBUMIN/GLOBULIN RATIO 1.6 (0.8-2.0); ALKALINE PHOSPHATASE 67 IU/L (40-150); ANION GAP 18.1 mmol/L (8-16); BLOOD UREA NITROGEN 27 mg/dL (7-26); BUN/CREATININE RATIO 23 (6-25); CALCIUM 9.8 mg/dL (8.4-10.2); CARBON DIOXIDE 22 mmol/L (22-29); CHLORIDE 105 mmol/L (98-107); CREATINE KINASE 39 IU/L (29-168); CREATININE, SERUM 1.17 mg/dL (0.57-1.11); GLUCOSE 186 mg/dL (74-118); POTASSIUM 4.1 mmol/L (3.5-5.1); SODIUM 141 mmol/L (136-145)
[2022-06-11 09:44] LABS: ALANINE AMINOTRANSFERASE < 6 IU/L (0-55)
[2022-06-11] MEDS ORDERED: CEFTRIAXONE 1 GM VIAL IM ONE (11:45)
[2022-06-11] MEDS ORDERED: METHYLPREDNISOLONE SOD SUCC 125 MG/2ML VIAL IV ONE (12:00)
[2022-06-11] MEDS: DOXYCYCLINE HYCLATE TABLET 100 MG TAB PO SCH (12:04)
[2022-06-11 12:13] VITALS: PULSE 82; RESP 18; O2SAT 96
[2022-06-11] MEDS: ALBUTEROL/IPRATROPIUM 3 ML NEB NEB SCH ×2 (13:00→19:35)
[2022-06-11 13:16] VITALS: PULSE 77; RESP 18; O2SAT 98
[2022-06-11] MEDS ORDERED: ROPINIROLE HCL1 MG PO (14:18)
[2022-06-11] MEDS ORDERED: SALMETEROL/FLUTICASONE 250/50 INH PRN (15:15)
[2022-06-11] MEDS: METFORMIN HCL 500 MG TAB PO SCH (17:54)
[2022-06-11] MEDS: CARBIDOPA/LEVODOPA 10/100 TAB PO SCH ×2 (18:06→21:45)
[2022-06-11 19:35] VITALS: PULSE 104; RESP 24; O2SAT 95
[2022-06-11 20:00] VITALS: BP 123/54; PULSE 111; RESP 18; TEMP 98.2; O2SAT 100
[2022-06-11 20:04] LABS: CREATINE KINASE 33 IU/L (29-168)
[2022-06-11 20:38] LABS: FREE THYROXINE INDEX 2.9464 (1.4-3.8); THYROID STIMULATING HORMONE 0.396 uIU/mL (0.350-4.940)
[2022-06-11 21:22] VITALS: BP 136/75; PULSE 97; RESP 16; TEMP 98.5; O2SAT 100
[2022-06-11] MEDS: ROPINIROLE HCL 1 MG TAB PO SCH (21:46)
[2022-06-11] MEDS: ATORVASTATIN 10 MG TAB PO SCH (21:46)
[2022-06-11] MEDS: METHYLPREDNISOLONE SOD SUCC 40 MG/ML VIAL 1ML IV SCH (21:46)
[2022-06-12] VITALS (11 sets, daily range): BP systolic 123–139; BP diastolic 57–70; PULSE 89–116; RESP 17–20; TEMP 97.7–98.7; O2SAT 93–100
[2022-06-12] MEDS: ALBUTEROL/IPRATROPIUM 3 ML NEB NEB SCH ×4 (01:45→19:30)
[2022-06-12] MEDS: METHYLPREDNISOLONE SOD SUCC 40 MG/ML VIAL 1ML IV SCH ×3 (05:38→22:03)
[2022-06-12 06:11] LABS: BASOPHILS % 0.2 % (0.0-1.0); EOSINOPHILS % 0.2 % (0.0-6.0); HEMATOCRIT 39.4 % (34.2-44.1); HEMOGLOBIN 12.9 g/dL (12.0-16.0); LYMPHOCYTES # (AUTO) 0.7 (1.0-3.2); LYMPHOCYTES % 7.8 % (18.0-39.1); MEAN CORPUSCULAR HEMOGLOBIN 30.3 pg (28-32); MEAN CORPUSCULAR HGB CONC 32.7 g/dL (31-35); MEAN CORPUSCULAR VOLUME 92.5 fL (81-99); MONOCYTES # (AUTO) 0.1 (0.2-0.8); MONOCYTES % 1.1 % (4.4-11.3); NEUTROPHILS # (AUTO) 7.6 (2.1-6.9); NEUTROPHILS % 89.9 % (38.7-80.0); PLATELET COUNT 134 x10e3/uL (140-360); RED BLOOD COUNT 4.26 x10e6/uL (3.6-5.1); RED CELL DISTRIBUTION WIDTH 13.2 % (11.7-14.4)
[2022-06-12 06:41] LABS: ANION GAP 16.2 mmol/L (8-16); CALCIUM 9.1 mg/dL (8.4-10.2); CREATININE, SERUM 0.85 mg/dL (0.57-1.11); POTASSIUM 4.2 mmol/L (3.5-5.1)
[2022-06-12] MEDS: METFORMIN HCL 500 MG TAB PO SCH ×2 (09:00→17:21)
[2022-06-12] MEDS: DOXYCYCLINE HYCLATE TABLET 100 MG TAB PO SCH ×2 (09:01→17:21)
[2022-06-12] MEDS: ROPINIROLE HCL 1 MG TAB PO SCH ×3 (09:01→21:54)
[2022-06-12] MEDS: CARBIDOPA/LEVODOPA 10/100 TAB PO SCH ×4 (10:10→21:54)
[2022-06-12] MEDS ORDERED: DEXTROSE 50% SYRINGE 50 ML IV PRN (18:45)
[2022-06-12] MEDS: ATORVASTATIN 10 MG TAB PO SCH (21:54)
[2022-06-12] MEDS: INSULIN LISPRO 100 UNIT/1 ML 3ML VIAL SQ SCH (22:03)
[2022-06-13] VITALS (10 sets, daily range): BP systolic 115–151; BP diastolic 55–79; PULSE 86–108; RESP 16–21; TEMP 97.4–97.9; O2SAT 95–100
[2022-06-13] MEDS: ALBUTEROL/IPRATROPIUM 3 ML NEB NEB SCH ×3 (02:35→13:35)
[2022-06-13] MEDS: METHYLPREDNISOLONE SOD SUCC 40 MG/ML VIAL 1ML IV SCH (05:39)
[2022-06-13] MEDS: INSULIN LISPRO 100 UNIT/1 ML 3ML VIAL SQ SCH ×3 (07:30→16:30)
[2022-06-13] MEDS: DOXYCYCLINE HYCLATE TABLET 100 MG TAB PO SCH ×2 (09:02→17:19)
[2022-06-13] MEDS: CARBIDOPA/LEVODOPA 10/100 TAB PO SCH (09:02)
[2022-06-13] MEDS: ROPINIROLE HCL 1 MG TAB PO SCH ×2 (09:02→16:13)
[2022-06-13] MEDS: METFORMIN HCL 500 MG TAB PO SCH ×2 (09:02→17:19)
[2022-06-13] MEDS ORDERED: CARBIDOPA/LEVODOPA 10/100 TAB PO SCH (15:00)
== END 2022-06-13 18:37 | disposition home or self-care (01) | DRG 190 ==
LOC: ER 08:46 → ERHOLD 11:53 → MED/SURG3 20:12 → OBSVTOIN 06-12 09:09
PROVIDERS: ADMIT Family Medicine; ATTEND Family Medicine
DX: J44.1 Chronic obstructive pulmonary disease with (acute) exacerbation (principal); J96.91 Respiratory failure, unspecified with hypoxia; J20.9 Acute bronchitis, unspecified; J44.0 Chronic obstructive pulmonary disease with (acute) lower respiratory infection; I35.0 Nonrheumatic aortic (valve) stenosis; G20 Parkinson's disease; E78.5 Hyperlipidemia, unspecified; E11.9 Type 2 diabetes mellitus without complications; Z79.84 Long term (current) use of oral hypoglycemic drugs; J30.2 Other seasonal allergic rhinitis
CPT/HCPCS: 36415; 71045; 71250; 80048; 80053; 82550; 82553; 82948; 83880; 84436; 84443; 84479; 84484; 85025; 85610; 85730; 87040; 93005; 93306; 94640; 94799; 99284; G0378; J0696; J2920; J2930